=== PATIENT | female | born 1990 | race Hispanic/Latino ===

== ENCOUNTER 2021-04-05 23:10 | Emergency (ER) | payer OTHER, SELFPAY | END 2021-04-06 02:20 | disposition home or self-care (01) | LOC: CSHERS 23:10 | DX: S16.1XXA Strain of muscle, fascia and tendon at neck level, initial encounter (principal); S90.01XA Contusion of right ankle, initial encounter; E03.9 Hypothyroidism, unspecified; E78.00 Pure hypercholesterolemia, unspecified; W22.12XA Striking against or struck by front passenger side automobile airbag, initial encounter; Z79.899 Other long term (current) drug therapy | CPT/HCPCS: 72040; 72170 ==

== ENCOUNTER 2022-05-14 09:50 | Emergency (ER) | payer SELFPAY ==
[2022-05-14] MEDS ORDERED: Promethazine HCl 25 MG/ML VIAL ONE (10:31)
[2022-05-14 10:56] LABS: BHCG - Serum Negative (NEGATIVE); Pregs Control Background? CLEAR/WHITE (CLR/WHITE); Pregs Control Bar Appear? YES (CONTROL BAR)
[2022-05-14 10:59] LABS: #Basophils 0.1 10x3/uL (0.0-0.2); #Eosinphils 0.2 10x3/uL (0.0-0.5); #Monocytes 0.6 10x3/uL (0.0-1.1); #Neutrophils 6.2 10x3/uL (1.5-8.4); %Basophils 0.8 % (0.0-2.0); %Eosinophils 1.8 % (0.0-6.0); %Monocytes 6.7 % (0.0-10.0); %Neutrophils 68.4 % (40.0-75.0); Mean Corpuscular HGB CONC 30.8 g/dL (32.0-36.0); Mean Corpuscular Hemoglobin 22.9 pg (27.0-33.0); Mean Corpuscular Volume 74.5 fl (81.6-98.3); Mean Platelet Volume 10.3 fl (7.4-10.4); Platelet Count 364 10x3/uL (150-450); RBC Distribution Width 20.6 % (11.5-14.5); Red Blood Cell (RBC) Count 4.36 10x6/uL (3.90-5.03)
[2022-05-14 11:02] LABS: ALT (SGPT) 39 U/L (8-55); AST (SGOT) 31 U/L (5-34); Alkaline Phosphatase 68 U/L (40-110); Anion Gap 15 mmol/L (10-20); BUN (Urea Nitrogen) 9 mg/dL (7.0-18.7); Bilirubin, Total 0.2 mg/dL (0.2-1.2); Calc. Creatinine Clearance 0 mL/min (70-130); Calcium 8.9 mg/dL (7.8-10.44); Carbon Dioxide 22 mmol/L (22-29); Chloride 102 mmol/L (98-107); Estimated GFR 100; Globulin 3.5 g/dL (2.4-3.5); Glucose 100 mg/dL (70-105); Lipase 13 U/L (8-78); Potassium 3.8 mmol/L (3.5-5.1); Protein, Total 7.5 g/dL (6.0-8.3); Sodium 135 mmol/L (136-145)
[2022-05-14 12:41] LABS: Bilirubin Neg (Negative); Blood, Urine 250 (Negative); Glucose, Urine (Dipstick) Normal (Negative); Ketone, Urine Negative (Negative); Leukocyte Negative (Negative); Nitrite Negative (Negative); Protein, Urine (Dipstick) 15 mg/dl (Neg-Trace); Specific Gravity, Urine 1.005 (1.005-1.030); Urobilinogen Normal mg/dL (Less than 2)
[2022-05-14 12:57] LABS: Bacteria/HPF None Seen HPF (None Seen); RBC/HPF 21-50 HPF (0-3); Squamous Epithelial 0-3 HPF (0-3); WBC/HPF None Seen HPF (0-3)
== END 2022-05-14 13:42 | disposition home or self-care (01) ==
LOC: CSHERS 09:50
DX: G89.18 Other acute postprocedural pain (principal); R10.9 Unspecified abdominal pain; R11.2 Nausea with vomiting, unspecified; D64.9 Anemia, unspecified
CPT/HCPCS: 36415; 74177; 80053; 81003; 81015; 83605; 83690; 84703; 85025; 96361; 96374; J2550

== ENCOUNTER 2022-10-11 15:37 | Emergency (ER) | payer SELFPAY ==
[2022-10-11] MEDS ORDERED: diphenhydrAMINE 50 MG/ML VIAL ONE (15:56)
[2022-10-11] MEDS ORDERED: EPINEPHrine 1 MG/ML AMP ONE (15:56)
[2022-10-11] MEDS ORDERED: methylPREDNISolone Sod Succ/PF 125 MG/2 ML VIAL ONE (15:56)
[2022-10-11] MEDS ORDERED: Famotidine/PF 20 mg/2ml Vial ONE (15:57)
== END 2022-10-11 18:44 | disposition home or self-care (01) ==
LOC: CSHERS 15:37
DX: T78.2XXA Anaphylactic shock, unspecified, initial encounter (principal); L50.9 Urticaria, unspecified; E78.00 Pure hypercholesterolemia, unspecified; E03.9 Hypothyroidism, unspecified
CPT/HCPCS: 96372; 96374; 96375; J0171; J1200; J2930; S0028

== ENCOUNTER 2022-10-25 12:22 | Emergency (ER) | payer SELFPAY | END 2022-10-25 13:26 | disposition home or self-care (01) | LOC: CSHERS 12:22 | DX: R50.9 Fever, unspecified (principal); E03.9 Hypothyroidism, unspecified; E78.00 Pure hypercholesterolemia, unspecified | CPT/HCPCS: 99283 ==

== ENCOUNTER 2023-07-03 20:16 | Emergency (ER) | payer SELFPAY ==
[2023-07-03 21:17] LABS: SARS-CoV-2 NAA Rapid Test Not Detected (NotDetected)
[2023-07-03] MEDS ORDERED: Ondansetron ODT 4 MG TAB ONE (21:47)
[2023-07-03] MEDS ORDERED: Acetaminophen 500 MG TAB ONE (22:05)
[2023-07-03] MEDS ORDERED: Ibuprofen 200 MG TAB ONE (22:05)
[2023-07-03] MEDS ORDERED: Oseltamivir 75 MG CAP PO SCH (22:15)
== END 2023-07-03 23:50 | disposition home or self-care (01) ==
LOC: CSHERS 20:16
DX: J10.1 Influenza due to other identified influenza virus with other respiratory manifestations (principal); E03.9 Hypothyroidism, unspecified; Z20.822 Contact with and (suspected) exposure to COVID-19
CPT/HCPCS: 93005; Q0162

== ENCOUNTER 2023-07-04 15:31 | Emergency (ER) | payer SELFPAY ==
[2023-07-04] MEDS ORDERED: methylPREDNISolone Sod Succ/PF 125 MG/2 ML VIAL ONE (15:42)
[2023-07-04] MEDS ORDERED: EPINEPHrine 1 MG/ML VIAL ONE (15:42)
[2023-07-04] MEDS ORDERED: Famotidine/PF 20 mg/2ml Vial ONE (15:59)
[2023-07-04] MEDS ORDERED: diphenhydrAMINE 50 MG/ML VIAL ONE (15:59)
[2023-07-04 16:37] LABS: BHCG - Serum Negative (NEGATIVE); Pregs Control Background? CLEAR/WHITE (CLR/WHITE); Pregs Control Bar Appear? YES (CONTROL BAR)
[2023-07-04 16:41] LABS: ALT (SGPT) 58 U/L (8-55); AST (SGOT) 44 U/L (5-34); Albumin 3.8 g/dL (3.5-5.0); Alkaline Phosphatase 81 U/L (40-110); Anion Gap 17 mmol/L (10-20); BUN (Urea Nitrogen) 8 mg/dL (7.0-18.7); Bilirubin, Total 0.2 mg/dL (0.2-1.2); Calc. Creatinine Clearance 0 mL/min (70-130); Calcium 8.7 mg/dL (7.8-10.44); Carbon Dioxide 17 mmol/L (22-29); Chloride 108 mmol/L (98-107); Estimated GFR 88; Globulin 3.7 g/dL (2.4-3.5); Glucose 94 mg/dL (70-105); Potassium 3.6 mmol/L (3.5-5.1); Protein, Total 7.5 g/dL (6.0-8.3); Sodium 138 mmol/L (136-145)
[2023-07-04 16:49] LABS: #Eosinphils 0.1 10x3/uL (0.0-0.5); #Monocytes 0.5 10x3/uL (0.0-1.1); #Neutrophils 3.7 10x3/uL (1.5-8.4); %Basophils 0.5 % (0.0-2.0); %Lymphocytes 29.5 % (18.0-47.0); %Monocytes 7.7 % (0.0-10.0); %Neutrophils 60.8 % (40.0-75.0); Hematocrit 35.6 % (34.9-44.5); Hemoglobin 10.9 g/dL (12.0-15.5); Mean Corpuscular HGB CONC 30.6 g/dL (32.0-36.0); Mean Corpuscular Hemoglobin 21.5 pg (27.0-33.0); Mean Corpuscular Volume 70.1 fl (81.6-98.3); Mean Platelet Volume 10.8 fl (7.4-10.4); Platelet Count 386 10x3/uL (150-450); RBC Distribution Width 18.2 % (11.5-14.5); Red Blood Cell (RBC) Count 5.08 10x6/uL (3.90-5.03); White Blood Cell (WBC) Count 6.1 10x3/uL (3.5-10.5)
[2023-07-04 18:58] LABS: Anisocytosis SLIGHT = 6-15 cells (100X) (0-5/hpf); Hypochromia SLIGHT = 6-15 cells (100X) (0-5/hpf); Microcytosis SLIGHT = 6-15 cells (100X) (0-5/hpf)
[2023-07-04 18:59] LABS: Platelet Adequacy Comment Appears Adequate
[2023-07-04] MEDS ORDERED: Ketorolac Tromethamine 30 MG/ML VIAL ONE (19:21)
== END 2023-07-04 20:16 | disposition home or self-care (01) ==
LOC: CSHERS 15:31
DX: T88.6XXA Anaphylactic reaction due to adverse effect of correct drug or medicament properly administered, initial encounter (principal); T45.0X5A Adverse effect of antiallergic and antiemetic drugs, initial encounter; L50.9 Urticaria, unspecified; E03.9 Hypothyroidism, unspecified; Z79.899 Other long term (current) drug therapy
CPT/HCPCS: 71045; 80053; 84703; 85025; 96361; 96372; 96374; 96375; J0171; J1200; J1885; J2930; S0028

== ENCOUNTER 2023-10-13 09:26 | Emergency (ER) | payer SELFPAY ==
[2023-10-13 11:11] LABS: Influenza A by NAA Not Detected (NotDetected); Influenza B by NAA Not Detected (NotDetected); SARS-CoV-2 NAA Rapid Test DETECTED (NotDetected)
== END 2023-10-13 11:20 | disposition home or self-care (01) ==
LOC: CSHERS 09:26
DX: U07.1 COVID-19 (principal)
CPT/HCPCS: 99283

== ENCOUNTER 2023-10-14 21:33 | Emergency (ER) | payer SELFPAY ==
[2023-10-14] MEDS ORDERED: methylPREDNISolone Sod Succ/PF 125 MG/2 ML VIAL ONE (21:57)
[2023-10-14] MEDS ORDERED: Famotidine/PF 20 mg/2ml Vial ONE (21:58)
[2023-10-14] MEDS ORDERED: diphenhydrAMINE 50 MG/ML VIAL ONE (21:58)
== END 2023-10-14 23:00 | disposition home or self-care (01) ==
LOC: CSHERS 21:33
DX: L50.0 Allergic urticaria (principal); E78.00 Pure hypercholesterolemia, unspecified; E03.9 Hypothyroidism, unspecified; Z79.899 Other long term (current) drug therapy
CPT/HCPCS: 96374; 96375; J1200; J2930; S0028

== ENCOUNTER 2024-01-30 19:59 | Emergency (ER) | payer SELFPAY ==
[2024-01-30] MEDS ORDERED: methylPREDNISolone Sod Succ/PF 125 MG/2 ML VIAL ONE (20:21)
[2024-01-30] MEDS ORDERED: diphenhydrAMINE 25 MG CAP ONE (20:22)
[2024-01-30] MEDS ORDERED: Famotidine 20 MG TAB ONE (20:27)
== END 2024-01-30 21:00 | disposition home or self-care (01) ==
LOC: CSHERS 19:59
DX: L50.9 Urticaria, unspecified (principal)
CPT/HCPCS: 96372; 99283; J2930

== ENCOUNTER 2024-03-02 17:50 | Emergency (ER) | payer SELFPAY ==
[2024-03-02 18:35] LABS: #Basophils 0.06 10x3/uL (0.0-0.2); #Eosinphils 0.14 10x3/uL (0.0-0.5); #Monocytes 0.66 10x3/uL (0.0-1.1); #Neutrophils 5.99 10x3/uL (1.5-8.4); %Basophils 0.6 % (0.0-2.0); %Eosinophils 1.3 % (0.0-6.0); %Lymphocytes 33.7 % (18.0-47.0); %Monocytes 6.4 % (0.0-10.0); %Neutrophils 57.7 % (40.0-75.0); Hematocrit 30.8 % (34.9-44.5); Hemoglobin 9.4 g/dL (12.0-15.5); Mean Corpuscular HGB CONC 30.5 g/dL (32.0-36.0); Mean Corpuscular Volume 68.9 fL (81.6-98.3); Mean Platelet Volume 10.4 fL (7.4-10.4); Platelet Count 461 10x3/uL (150-450); RBC Distribution Width 18.9 % (11.5-14.5); Red Blood Cell (RBC) Count 4.47 10x6/uL (3.90-5.03); White Blood Cell (WBC) Count 10.4 10x3/uL (3.5-10.5)
[2024-03-02 18:44] LABS: ALT (SGPT) 50 U/L (8-55); AST (SGOT) 32 U/L (5-34); Albumin 3.6 g/dL (3.5-5.0); Alkaline Phosphatase 74 U/L (40-110); Anion Gap 13 mmol/L (10-20); BUN (Urea Nitrogen) 8 mg/dL (7.0-18.7); Bilirubin, Total 0.3 mg/dL (0.2-1.2); Calc. Creatinine Clearance 0 mL/min (70-130); Calcium 9.4 mg/dL (7.8-10.44); Carbon Dioxide 22 mmol/L (22-29); Chloride 107 mmol/L (98-107); Estimated GFR 105; Globulin 3.7 g/dL (2.4-3.5); Glucose 104 mg/dL (70-105); Potassium 3.8 mmol/L (3.5-5.1); Protein, Total 7.3 g/dL (6.0-8.3); Sodium 138 mmol/L (136-145)
[2024-03-02 19:57] LABS: Anisocytosis MARKED = >30 cells (100X) (0-5/hpf)
[2024-03-02 19:58] LABS: Hypochromia MODERATE=16-30 cells (100X) (0-5/hpf); Microcytosis MARKED = >30 cells (100X) (0-5/hpf); Platelet Adequacy Comment Appears Increased
== END 2024-03-02 20:51 | disposition home or self-care (01) ==
LOC: CSHERS 17:50
DX: O20.0 Threatened abortion (principal); Z3A.01 Less than 8 weeks gestation of pregnancy
CPT/HCPCS: 36415; 76856; 80053; 84702; 85025; 86900; 86901